=== PATIENT | female | born 1980 | race Caucasian/White ===

== ENCOUNTER → 2023-09-24 10:16 | Outpatient (REF) | payer BC, SELFPAY | LOC: RAD 10:16 | PROVIDERS: ATTENDING PHYSICIAN Nurse Practitioner Family; FAMILY PHYSICIAN Family Medicine | DX: N93.9 Abnormal uterine and vaginal bleeding, unspecified (principal) | CPT/HCPCS: 76830; 76856 ==

== ENCOUNTER 2024-01-14 06:25 | Day surgery (SDC) | payer BC, SELFPAY | END 2024-01-14 15:30 | disposition home or self-care (01) | LOC: GI 06:25 | PROVIDERS: ATTENDING PHYSICIAN Internal Medicine Gastroenterology; FAMILY PHYSICIAN Family Medicine | DX: Z12.11 Encounter for screening for malignant neoplasm of colon (principal); K64.8 Other hemorrhoids; K63.5 Polyp of colon | CPT/HCPCS: 45380; 88305 ==

== ENCOUNTER 2024-10-09 02:30 | Emergency (ER) | payer BC, SELFPAY ==
[2024-10-09 02:34] VITALS: BP 129/80
[2024-10-09 03:27] VITALS: BMI 20.9
--- NOTE | 2024-10-09 06:05 | ED.GENMED ---
History of Present Illness
General
Chief Complaint: Foreign Body Removal
Source: patient
Exam Limitations: none
Time Seen by Provider: 10/09/24 05:56
Nursing documentation reviewed up to this point in time: agreed with
History of Present Illness
History of Present Illness:
This is a 43-year-old woman who presents with concern for vaginal foreign body, specifically a condom.
She attempted to self retrieve the condom and believes she can feel it up in her vagina but has been unable to remove. She does admit to mild irritation of her vagina which she suspects related to 'digging' Scant blood noted on her finger but no
bloody discharge from vagina. She denies abdominal pain. No dysuria. No history of similar episodes in the past.
Past History
Past History
ED Past Medical History: Hypercholesterolemia and Other (Ovarian cysts; migraine headaches)
ED Past Surgical History: Appendectomy, , Gynecological (Bilateral mastectomy with breast reconstruction.) and Other (Partial thyroidectomy)
Social History
Tobacco: Non-smoker
Alcohol: None
Drug: None
Personal:
Living: with family
Employment: Employed
Family History
Family History: Other (Noncontributory)
Phy Exam
Physical Exam
Physical Exam:
GENERAL: 43-year-old woman appears her stated age, bright and alert, pleasant, appears in no acute distress.
ENT: oral mucosa is moist. No rhinorrhea.
CARDIAC: Regular rate and rhythm. no murmur.
LUNGS: Respirations are easy and nonlabored.
ABDOMEN: Soft, nondistended, without focal tenderness
: Speculum exams a single condom within the superior portion of the vagina. Successfully removed with ring forceps. There is no cervical nor vaginal abrasions. No blood within the vaginal vault.
NEUROLOGICAL: Alert and oriented x3, no focal neuro deficits. Gait is fuller and steady.
SKIN: Warm and dry, normal color, skin intact. No rash.
MUSCULOSKELETAL: No C/C/E. peripheral pulses are full and equal b/l. No palpable tenderness.
PSYCH: Normal and appropriate interaction.
Course
Vital Signs
Initial and Last Documented VS:
Initial Vital Signs
Temp Pulse Resp BP Pulse Ox
98.7 F 112 16 129/80 100
10/09/24 02:34 10/09/24 02:34 10/09/24 02:34 10/09/24 02:34 10/09/24 02:34
Last Documented Vital Signs
Temp Pulse Resp BP Pulse Ox
98.7 F 112 16 129/80 98
10/09/24 02:34 10/09/24 02:34 10/09/24 02:34 10/09/24 02:34 10/09/24 06:06
MDM/Problems Addressed
Differential Diagnosis Includes:
Speculum exam reveals a condom within the superior portion of the vaginal vault that has been successfully removed with ring forceps.
No evidence of vaginal nor cervical abrasions.
No evidence of inflammation or infectious process.
Recommend conservative measures over the next few days, pelvic rest�no douching, no tampons, no sex.
Follow-up with product test engineer as needed.
*Pulse Oximetry
SaO2: 98
Oxygen Mode of Delivery: Room air
Patient hypoxic: no
*Critical Care Note
Total Time (30-74mins, 75-104mins- exclusive of procedures): Not Applicable
ED Attending Note
-
Portions of this chart may have been created with voice recognition software.� Occasional wrong word or��sound alike� substitutions may have occurred due to the inherent limitations of voice recognition software.
Discharge Plan
Departure
Patient Disposition: Home (Routine Discharge)
Date of Disposition: 10/09/24
Time of Disposition: 06:05
Patient with high blood pressure during this ER visit?: No
Discharge Problem:
Foreign body in vagina
Instructions: Vaginal Foreign Body
Prescriptions:
No Action
multivitamin
1 tab PO DAILY
Referrals:
Karri Hernandez MD [Family Provider, Family Practice]
Activity Restrictions/Additional Instructions:
Follow-up with your product test engineer as needed
Interventions
Interventions:
*Risk Screen - Suicide Last Done: 10/09/24 02:34
*General Assessment Last Done: 10/09/24 02:34
*Neglect/Abuse Screening Last Done: 10/09/24 02:34
*ED- Fall Risk Assessment Last Done: 10/09/24 03:27
*ED COVID-19 Vaccine History Last Done: 10/09/24 03:27
Discharge Date and Time
Print Language: [id number]
== END 2024-10-09 06:44 | disposition home or self-care (01) ==
LOC: EMR 02:30
PROVIDERS: EMERGENCY PHYSICIAN Emergency Medicine; FAMILY PHYSICIAN Family Medicine
DX: T19.2XXA Foreign body in vulva and vagina, initial encounter (principal); W44.8XXA Other foreign body entering into or through a natural orifice, initial encounter; E78.00 Pure hypercholesterolemia, unspecified
CPT/HCPCS: 99282